=== PATIENT | male | born 1980 | race Caucasian/White ===

== ENCOUNTER 2017-12-11 17:10 | Emergency (ER) | payer BC ==
[2017-12-11] MEDS: ONDANSETRON (ODT) 4 MG TAB ODT (18:27)
[2017-12-11] MEDS: HYDROCODONE/APAP (10/325) TAB PO (18:28)
[2017-12-11 18:36] LABS: URINE BLOOD (Dip) POC Trace-intact (NEGATIVE); URINE GLUCOSE (Dip) POC Negative (NEGATIVE); URINE KETONES (Dip) POC Negative (NEGATIVE); URINE LEUKOCYTE EST (Dip) POC Negative (NEGATIVE); URINE NITRITE (Dip) POC Negative (NEGATIVE); URINE TOTAL PROTEIN POC Negative (NEGATIVE)
[2017-12-11 18:36] LABS: URINE PH (Dip) POC 6.5 (5.0-8.5)
[2017-12-11 18:53] LABS: URINE PH (Dip) POC 5.5 (5.0-8.5)
[2017-12-11 18:53] LABS: URINE BLOOD (Dip) POC 1+ (NEGATIVE); URINE GLUCOSE (Dip) POC Negative (NEGATIVE); URINE KETONES (Dip) POC 1+ (NEGATIVE); URINE LEUKOCYTE EST (Dip) POC Negative (NEGATIVE); URINE NITRITE (Dip) POC Negative (NEGATIVE); URINE TOTAL PROTEIN POC Trace (NEGATIVE)
== END 2017-12-11 19:18 | disposition home or self-care (01) ==
LOC: FTE 17:10
DX: K63.89 Other specified diseases of intestine (principal); E11.9 Type 2 diabetes mellitus without complications; J45.909 Unspecified asthma, uncomplicated
CPT/HCPCS: 74176; 81003; 99284-25